=== PATIENT | male | born 1975 | race Two or more races ===

== ENCOUNTER 2024-07-11 12:42 | Emergency (ER) | payer MEDICAID, SELFPAY ==
[2024-07-11 12:44] VITALS: BMI 26.6
[2024-07-11 13:00] VITALS: BP 134/79; PULSE 95; RESP 17; TEMP 37.5; O2SAT 95; BMI 28.1
[2024-07-11] MEDS: IBUPROFEN TAB 400 MG TABLET 800 MG PO (13:13)
[2024-07-11] MEDS: DEXAMETHASONE SOD PHOS INJ 10 MG/ML VIAL PO (13:14)
[2024-07-11] MEDS: LIDOCAINE HCL 1% 20 ML VIAL 2.1 ML INFL (13:19)
[2024-07-11] MEDS: cefTRIAXone SOD INJ 1,000 MG VIAL 1000 MG IM (13:19)
--- NOTE | 2024-07-11 13:52 | PD.EDDENTL ---
ED Dental RME/HPI General Chief complaint: Dental/Oral/Throat Stated complaint: Toothache, face swelling Left side Time Seen by Provider: 07/11/24 12:45 Arrival date/time: 07/11/24 12:42 49-year-old male presents emergency department today complains of toothache and facial swelling patient ports no difficulty breathing or swallowing Limitations: no limitations Related Data Previous Rx's ?Medication ?Instructions ?Recorded ibuprofen 600 mg tablet 600 mg PO Q6HR PRN PAIN #25 tabs 05/31/16 clindamycin HCl 150 mg capsule 450 mg (3 x 150 mg) PO TID 7 days 07/11/24 #63 caps ibuprofen 800 mg tablet 800 mg PO TID PRN pain #30 tabs 07/11/24 prednisone 20 mg tablet 20 mg PO BID 3 days #6 tabs 07/11/24 Allergies Allergy/AdvReac Type Severity Reaction Status Date / Time No Known Allergies Allergy Mild Uncoded 05/31/16 07:06 Review of Systems Review of Systems Systems Reviewed: All systems reviewed, normal except as documented Constitutional Constitutional: Reports system reviewed and no additional complaints, except as documented, Denies fever(s) and Denies headache(s) Eyes Eyes: Reports system reviewed and no additional complaints, except as documented and Denies blurry vision ENT Ears, Nose, Mouth, and Throat: Reports system reviewed and no additional complaints, except as documented, Reports dental pain, Reports facial pain, Denies headache(s), Denies nasal congestion and Denies nasal discharge Cardiovascular Cardiovascular: Reports system reviewed and no additional complaints, except as documented, Denies chest pain and Denies dyspnea Respiratory Respiratory: Reports system reviewed and no additional complaints, except as documented, Denies chest congestion, Denies cough and Denies dyspnea Gastrointestinal Gastrointestinal: Reports system reviewed and no additional complaints, except as documented and Denies abdominal pain Integumentary/Breasts Skin/Breast: Reports system reviewed and no additional complaints, except as documented and Denies rash Neurologic Neurologic: Reports system reviewed and no additional complaints, except as documented, Reports as per HPI and Denies headache(s) Past Medical History Social History SMOKING STATUS: Current some day smoker ED Exam General Limitations: Present no limitations General appearance: Present alert and in no apparent distress Head Head exam: Present atraumatic Eye Eye exam: Present normal appearance, PERRL and EOMI ENT ENT exam: Present mucous membranes moist and other (Dental abscess facial swelling) Neck Neck exam: Present normal inspection, full ROM and trachea midline Chest Chest inspection: Present normal inspection and symmetric chest wall rise Respiratory Respiratory exam: Present normal lung sounds bilaterally Cardiovascular Cardiovascular exam: Present regular rate, normal rhythm and normal heart sounds Abdominal Exam Abdominal exam: Present soft and normal bowel sounds Extremities Exam Extremities exam: Present normal inspection and full ROM Back Exam Back exam: Present normal inspection and full ROM Neurological Exam Neurological exam: Present alert, oriented X3 and CN II-XII intact Psychiatric Psychiatric exam: Present normal affect and normal mood Skin Skin exam: Present warm, dry, intact and normal color Course Quality Measures none Orders Category Date Time Status Dexamethasone Inj [Decadron Inj] Med 07/11/24 12:51 Discontinued 10 mg PO X1 ONE Ibuprofen Tab [Motrin Tab] Med 07/11/24 12:51 Discontinued 800 mg PO X1 ONE Lidocaine 1% 20 ml [Xylocaine 1% 20 ML] Med 07/11/24 12:51 Discontinued 2.1 ml INFL X1 ONE cefTRIAXone [Rocephin] Med 07/11/24 12:51 Discontinued 1,000 mg IM X1 ONE Vital Signs Vital signs: Vital Signs Temperature 99.5 F 07/11/24 13:00 Pulse Rate 95 07/11/24 13:00 Respiratory Rate 17 07/11/24 13:00 Blood Pressure 134/79 H 07/11/24 13:00 Pulse Oximetry (%) 95 07/11/24 13:00 Oxygen Delivery Method Room Air 07/11/24 13:00 O2 saturation 95% room air within normal limits Dental / Oral MDM Narrative MDM Narrative:: 49-year-old male presents emergency department today complains of toothache and facial swelling patient ports no difficulty breathing or swallowing On exam patient well-appearing patient does not appear ill or toxic and in no acute distress Patient given antibiotics and steroids as well as pain medication Explained to patient he must follow-up with dentist soon as possible for emergent concerns return immediately Patient data External records reviewed:: [facility] previous records Clinical information provided by:: patient Social determinants that could affect healthcare access:: none Patient has the following chronic illnesses:: None How is presenting disease/condition affected by chronic disease/condition?: no chronic disease Evaluation data The following diagnostics were reviewed and interpreted by me:: other (specify) (N/A) Lab and/or radiology exams considered but not ordered:: Consider not ordered Interpretation Summary: N/A Medications / Prescriptions Medications or Prescriptions considered but not ordered:: Given Medication administrations:: Medication Administration History Discontinued Medications Ceftriaxone Sodium (Ceftriaxone Sod Inj 1,000 Mg Vial) 1,000 mg IM X1 ONE Stop: 07/11/24 12:52 Last Admin: 07/11/24 13:19 Dose: 1,000 mg Documented By: CARLENE Dexamethasone Sodium Phosphate (Dexamethasone Sod Phos Inj 10 Mg/Ml Vial) 10 mg PO X1 ONE Stop: 07/11/24 12:52 Last Admin: 07/11/24 13:14 Dose: 10 mg Documented By: CARLENE Ibuprofen (Ibuprofen Tab 400 Mg Tablet) 800 mg PO X1 ONE Stop: 07/11/24 12:52 Last Admin: 07/11/24 13:13 Dose: 800 mg Documented By: CARLENE Lidocaine HCl (Lidocaine Hcl 1% 20 Ml Vial) 2.1 ml INFL X1 ONE Stop: 07/11/24 12:52 Last Admin: 07/11/24 13:19 Dose: 2.1 ml Documented By: CARLENE Given Consultations Consultation(s) initiated? (list below): No Diagnosis Dental Differential Diagnosis: gingival abscess, dental caries and toothache Most likely diagnosis given after review of the tests above:: Dental abscess Admission Indicated Admission indicated?: not indicated Admission Request Was there a request for admission?: No Disposition Plan Disposition Plan: Discharge Discharge Attestation Discharge Attestation: The patient and all family members were given an opportunity to ask questions and understood the discharge instructions. Discharge instructions specifically effects, indications for sooner follow up or return to the emergency department, and the expected course of current diagnosis. Patient condition: Stable Discharge Plan Plan Patient Disposition: HOME (Self Care) Disposition Comment: Stable Prescriptions/Referrals Prescriptions/Med Rec: New ibuprofen 800 mg tablet 800 mg PO TID PRN (Reason: pain) Qty: 30 0RF prednisone 20 mg tablet 20 mg PO BID 3 Days Qty: 6 0RF clindamycin HCl 150 mg capsule 450 mg PO TID 7 Days Qty: 63 0RF No Action ibuprofen 600 MG tablet 600 mg PO Q6HR PRN (Reason: PAIN) Qty: 25 0RF Problem List Clinical Impression: Abscess, dental Patient/Caregiver Discharge Instructions Education Materials: Dental Abscess Additional Instructions: Please follow up with your primary care doctor in the next 24-48hrs for any worsening symptoms return here immediately Print Language: Luxembourgish Stand Alone Forms: Joseline Award Info., Work/School Release, Patient Portal Info Letter PA/MOLD MAKING SUPERVISOR Supervising Physician PA/MOLD MAKING SUPERVISOR Supervising Physician: Dr mathis
== END 2024-07-11 14:06 | disposition home or self-care (01) ==
PROVIDERS: Emergency Provider Emergency Medicine; PCP Family Medicine
DX: K04.7 Periapical abscess without sinus (principal)
CPT/HCPCS: 96372; 99283; J0696; J1100; J3490; A9270

== ENCOUNTER 2024-07-24 15:21 | Emergency (ER) | payer MEDICAID, SELFPAY ==
[2024-07-24 15:21] VITALS: BMI 25.0
[2024-07-24 15:43] VITALS: BP 147/76; PULSE 80; RESP 18; TEMP 36.7; O2SAT 99
--- NOTE | 2024-07-24 16:15 | EDNOTE_ITS ---
<Statement entered by Sunni Stanton MD - 07/27/24 14:04> As co-signing physician, I was present and available for consult prn. I concur with the plan and care as documented by the midlevel provider. ED Ear RME/HPI General Chief complaint: Ear Stated complaint: LEFT EAR PAIN Time Seen by Provider: 07/24/24 15:33 Source: patient Arrival date/time: 07/24/24 15:21 This is a 49-year-old male who presents to the emergency department with complaints of left ear pain and muffled sounds. Denies fever, chills rigors. Mode of arrival: ambulatory Related Data Previous Rx's ?Medication ?Instructions ?Recorded ibuprofen 600 mg tablet 600 mg PO Q6HR PRN PAIN #25 tabs 05/31/16 ibuprofen 800 mg tablet 800 mg PO TID PRN pain #30 t abs 07/11/24 ofloxacin 0.3 % ear drops 10 drp otic (ear) QDAY 7 day s #10 07/24/24 mL Allergies Allergy/AdvReac Type Severity Reaction Status Date / Time No Known Allergies Allergy Mild NK Uncoded 07/24/24 15:27 Review of Systems Review of Systems Systems Reviewed: All systems reviewed, normal except as documented Narrative Review of Systems: Gen: No fever, no chills, no weight loss EYES: No discharge, no visual changes, no pain HEENT:+ ear pain, no congestion, no sore throat PULM: No shortness of breath, no cough, no congestion CV: No chest pain, no dyspnea on exertion, no palpitations GI: No nausea, no vomiting, no diarrhea, no pain, no constipation : No frequency, no urgency, no dysuria Musc/skel: No joint pain, no back pain Skin: No rash Psyc: No hallucinations, no depression Heme/Lymph: No easy bleeding or bruising tendencies Neuro: No weakness, no headache ED Exam Narrative Physical exam: General: Sittiing in Exam table in no acute distress, answering questions appropriately HENT: normocephalic, atraumatic, EOMI, PERRLA, moist mucous membranes. Bilateral ear canals are noted to have blue substance Chest: chest wall is nontender Cardiac: regular rate and rhythm, normal S1 and S2, no murmurs, rubs, or gallops, capillary refill ?2 seconds Pulmonary: clear to auscultation bilaterally, no wheezing, crackles, or rhonchi Abdominal: active bowel sounds, soft, nontender, nondistended Neuro: A&OX3, CN II-XII intact, sensation grossly intact bilaterally in UE and LE. Skin: no rashes, no ecchymosis Ext: no lower extremity edema Course Quality Measures none Vital Signs Vital signs: Vital Signs Temperature 98.0 F 07/24/24 15:43 Pulse Rate 80 07/24/24 15:43 Respiratory Rate 18 07/24/24 15:43 Blood Pressure 147/76 H 07/24/24 15:43 Pulse Oximetry (%) 99 07/24/24 15:43 Oxygen Delivery Method Room Air 07/24/24 15:43 Ear MDM Narrative MDM Narrative:: 49-year-old male evaluated in the emergency department for bilateral ear pain. Upon assessment patient is noted to have a blue substance in both ear canal. Patient reports he does use this hair gel and possibly the hair gel went into both of his ears. Ear lavage was ordered to clear substance out. Will place patient on otic antibiotics he is to follow-up with his PCP return to the emergency department this any worsening symptoms change in condition. Patient data External records reviewed:: [facility] previous records Clinical information provided by:: patient Social determinants that could affect healthcare access:: none Patient has the following chronic illnesses:: No How is presenting disease/condition affected by chronic disease/condition?: no chronic disease Evaluation data The following diagnostics were reviewed and interpreted by me:: other (specify) Lab and/or radiology exams considered but not ordered:: No Interpretation Summary: None Medications / Prescriptions Medications or Prescriptions considered but not ordered:: None Medication administrations:: None Consultations Consultation(s) initiated? (list below): No Diagnosis Ear Differential Diagnosis: otitis externa, otitis media, foreign body in ear and ruptured TM Most likely diagnosis given after review of the tests above:: Foreign body bilateral ear, ear lavage Admission Indicated Admission indicated?: not indicated Admission Request Was there a request for admission?: No Disposition Plan Disposition Plan: Discharge Discharge Attestation Discharge Attestation: The patient and all family members were given an opportunity to ask questions and understood the discharge instructions. Discharge instructions specifically effects, indications for sooner follow up or return to the emergency department, and the expected course of current diagnosis. Patient condition: Stable Discharge Plan Plan Patient Disposition: HOME (Self Care) Patient condition on transfer: Stable Prescriptions/Referrals Prescriptions/Med Rec: New ofloxacin 0.3 % drops 10 drp otic (ear) QDAY 7 Days Qty: 10 0RF No Action ibuprofen 600 MG tablet 600 mg PO Q6HR PRN (Reason: PAIN) Qty: 25 0RF ibuprofen 800 mg tablet 800 mg PO TID PRN (Reason: pain) Qty: 30 0RF Problem List Clinical Impression: Otitis externa, Foreign body in ear Patient/Caregiver Discharge Instructions Discharge Activity: activity as tolerated Education Materials: ED EAR CANAL Foreign Body Additional Instructions: Bilateral ear lavage. Use antibiotics as directed. Follow-up with your primary doctor clinic. Return to the emergency department this any worsening symptoms change in condition. Print Language: Hungarian Stand Alone Forms: Joseline Award Info., Patient Portal Info Letter PA/FRONT OFFICE REPRESENTATIVE Supervising Physician PA/FRONT OFFICE REPRESENTATIVE Supervising Physician: Dr. Mccloud
== END 2024-07-24 18:13 | disposition home or self-care (01) ==
PROVIDERS: Emergency Provider Emergency Medicine; PCP Family Medicine
DX: T16.2XXA Foreign body in left ear, initial encounter (principal); T16.1XXA Foreign body in right ear, initial encounter; H60.90 Unspecified otitis externa, unspecified ear; W44.9XXA Unspecified foreign body entering into or through a natural orifice, initial encounter
CPT/HCPCS: 99281

== ENCOUNTER 2024-08-18 14:48 | Emergency (ER) | payer SELFPAY ==
[2024-08-18 15:14] VITALS: BP 134/75; PULSE 81; RESP 18; TEMP 37.1; O2SAT 100; BMI 28.2
--- NOTE | 2024-08-18 15:25 | PD.EDSKIN ---
ED Skin Abcess FB-RME/HPI General Chief complaint: Ankle/Foot Injury Stated complaint: RIGHT FOOT INFECTION Time Seen by Provider: 08/18/24 14:51 Source: patient Arrival date/time: 08/18/24 14:48 49-year-old male with no known medical history presents to the emergency room with a chief complaint of an infection to his right heel. Patient states a lemon thorn pierced him 4 days ago. Mode of arrival: ambulatory Limitations: no limitations Related Data Previous Rx's ?Medication ?Instructions ?Recorded ibuprofen 600 mg tablet 600 mg PO Q6HR PRN PAIN #25 tabs 05/31/16 ibuprofen 800 mg tablet 800 mg PO TID PRN pain #30 tabs 07/11/24 sulfamethoxazole 800 1 tab PO BID #14 tabs 08/18/24 mg-trimethoprim 160 mg tablet (Bactrim DS) Allergies Allergy/AdvReac Type Severity Reaction Status Date / Time No Known Allergies Allergy Mild NK Uncoded 08/18/24 14:49 Review of Systems Review of Systems Systems Reviewed: All systems reviewed, normal except as documented Constitutional Constitutional: Reports system reviewed and no additional complaints, except as documented, Denies fatigue, Denies fever(s), Denies headache(s) and Denies weakness Eyes Eyes: Reports system reviewed and no additional complaints, except as documented, Denies blurry vision and Denies change in vision ENT Ears, Nose, Mouth, and Throat: Reports system reviewed and no additional complaints, except as documented, Denies otalgia, Denies headache(s), Denies nasal congestion, Denies throat swelling and Denies vertigo Cardiovascular Cardiovascular: Reports system reviewed and no additional complaints, except as documented, Denies chest pain, Denies dyspnea and Denies dyspnea on exertion Respiratory Respiratory: Reports system reviewed and no additional complaints, except as documented, Denies chest congestion, Denies cough, Denies dyspnea, Denies dyspnea on exertion and Denies wheezing Gastrointestinal Gastrointestinal: Reports system reviewed and no additional complaints, except as documented, Denies abdominal pain, Denies cramping, Denies nausea and Denies vomiting Genitourinary Genitourinary: Reports system reviewed and no additional complaints, except as documented, Denies dysuria and Denies hematuria Musculoskeletal Musculoskeletal: Reports system reviewed and no additional complaints, except as documented and Denies back pain Integumentary/Breasts Skin/Breast: Reports system reviewed and no additional complaints, except as documented and Reports wounds (Right heel erythema and swelling) Neurologic Neurologic: Reports system reviewed and no additional complaints, except as documented, Denies confusion, Denies headache(s), Denies lack of coordination, Denies vertigo and Denies weakness Psychiatric Psychiatric: Reports system reviewed and no additional complaints, except as documented, Denies anxiety, Denies confusion, Denies depression, Denies paranoia, Denies suicidal ideation and Denies tactile hallucinations Endocrine Endocrine: Reports system reviewed and no additional complaints, except as documented and Denies fatigue Hematologic/Lymphatic Hematologic/Lymphatic: Reports system reviewed and no additional complaints, except as documented and Denies lymphadenopathy Allergic/Immunologic Allergic/Immunologic: Reports system reviewed and no additional complaints, except as documented, Denies throat swelling, Denies urticaria and Denies wheezing ED Exam General Limitations: Present no limitations General appearance: Present alert and in no apparent distress Head Head exam: Present atraumatic Eye Eye exam: Present normal appearance, PERRL and EOMI ENT ENT exam: Present normal exam, normal oropharynx and mucous membranes moist Neck Neck exam: Present normal inspection, full ROM and trachea midline Chest Chest inspection: Present normal inspection and symmetric chest wall rise Respiratory Respiratory exam: Present normal lung sounds bilaterally Cardiovascular Cardiovascular exam: Present regular rate, normal rhythm and normal heart sounds Abdominal Exam Abdominal exam: Present soft and normal bowel sounds Extremities Exam Extremities exam: Present normal inspection and full ROM Expanded Lower Extremity Exam Hip/Pelvis exam: Present normal inspection Upper leg exam: Present normal inspection Knee exam: Present normal inspection Lower leg exam: Present normal inspection Ankle exam: Present normal inspection, tenderness, swelling and erythema Ankle image:  1. Right heel tenderness and swelling. The area is erythemic about 7 cm. The patient is able to ambulate and has full range of motion. At this time there is no pus to the area but the site is warm to the touch erythemic and swollen Foot/toe exam: Present tenderness, swelling and erythema Back Exam Back exam: Present normal inspection and full ROM Neurological Exam Neurological exam: Present alert, oriented X3 and CN II-XII intact Psychiatric Psychiatric exam: Present normal affect and normal mood Skin Skin exam: Present warm, dry, intact and normal color Course Quality Measures none Orders Category Date Time Status Clindamycin Vial [Cleocin vial] Med 08/18/24 15:22 Discontinued 600 mg IM X1 ONE Vital Signs Vital signs: Vital Signs Temperature 98.7 F 08/18/24 15:14 Pulse Rate 81 08/18/24 15:14 Respiratory Rate 18 08/18/24 15:14 Blood Pressure 134/75 H 08/18/24 15:14 Pulse Oximetry (%) 100 08/18/24 15:14 Oxygen Delivery Method Room Air 08/18/24 15:14 O2 saturation 100% on room air Skin / Abscess / Foreign Body MDM Narrative MDM Narrative:: 49-year-old male with no known medical history presents to the emergency room with a chief complaint of an infection to his right heel. Patient states a lemon thorn pierced him 4 days ago. Patient is hemodynamically stable and in no apparent distress. Patient is not tachycardic, he is afebrile, and does not meet sepsis criteria. Physical examination shows tenderness and swelling to the right heel. The area is very erythemic. The cellulitis of the foot is about 7 cm it is very erythemic. At this time there is no pus there is no indication for an incision and drainage. The area is very tender to the touch. IM antibiotics were given as and oral antibiotics are sent to the patient's pharmacy The patient was given instructions to follow-up with primary care provider or return to the emergency room in 48 hours for reevaluation of the cellulitis Patient was discharged and educated to return to the emergency room for any evidence of worsening signs or symptoms Patient data External records reviewed:: [facility] previous records Clinical information provided by:: patient Social determinants that could affect healthcare access:: none Patient has the following chronic illnesses:: No chronic illness How is presenting disease/condition affected by chronic disease/condition?: no chronic disease Evaluation data The following diagnostics were reviewed and interpreted by me:: lab results and radiology exam(s) Lab and/or radiology exams considered but not ordered:: Labs and radiology exams considered and ordered Interpretation Summary: N/A Medications / Prescriptions Medications or Prescriptions considered but not ordered:: Medication given Medication administrations:: Medication Administration History Discontinued Medications Clindamycin Phosphate (Clindamycin Phos Inj 150 Mg/Ml Vial 6 Ml) 600 mg IM X1 ONE Stop: 08/18/24 15:23 Last Admin: 08/18/24 15:38 Dose: 600 mg Documented By: OA Rx given Consultations Consultation(s) initiated? (list below): No Diagnosis Skin/Abscess Differential Diagnosis: abscess of skin or subcutaneous tissue, cellulitis, insect bites and contact dermatitis Most likely diagnosis given after review of the tests above:: Cellulitis Admission Indicated Admission indicated?: not indicated Admission Request Was there a request for admission?: No Disposition Plan Disposition Plan: Discharge Discharge Attestation Discharge Attestation: The patient and all family members were given an opportunity to ask questions and understood the discharge instructions. Discharge instructions specifically effects, indications for sooner follow up or return to the emergency department, and the expected course of current diagnosis. Patient condition: Stable Discharge Plan Plan Patient Disposition: HOME (Self Care) Disposition Comment: Stable Prescriptions/Referrals Prescriptions/Med Rec: New sulfamethoxazole-trimethoprim [Bactrim DS] 800-160 mg tablet 1 tab PO BID Qty: 14 0RF No Action ibuprofen 600 MG tablet 600 mg PO Q6HR PRN (Reason: PAIN) Qty: 25 0RF ibuprofen 800 mg tablet 800 mg PO TID PRN (Reason: pain) Qty: 30 0RF Problem List Clinical Impression: Cellulitis of foot Patient/Caregiver Discharge Instructions Education Materials: Discharge Instructions for Cellulitis, ED Cellulitis Additional Instructions: Por favor, consulte con [facility]?dico de cabecera en las pr?ximas 24 a 48 horas. Los antibi?ticos se env?an a [facility] farmacia, rec?jalos y t?melos seg?n lo indicado. Si hay evidencia de empeoramiento de los signos o s?ntomas, regrese a la luis de emergencias de inmediato. Print Language: Hong Konger Stand Alone Forms: Joseline Award Info., Patient Portal Info Letter PA/MAINTENANCE JOURNEYMAN Supervising Physician PA/MAINTENANCE JOURNEYMAN Supervising Physician: Dr. Erickson
[2024-08-18] MEDS: CLINDAMYCIN PHOS INJ 150 MG/ML VIAL 6 ML 600 MG IM (15:38)
== END 2024-08-18 17:42 | disposition home or self-care (01) ==
LOC: SERX 16:06
PROVIDERS: Emergency Provider Emergency Medicine; PCP Family Medicine
DX: L03.115 Cellulitis of right lower limb (principal)
CPT/HCPCS: 96372; 99283; J0736